=== PATIENT | male | born 1970 | race Caucasian/White ===

== ENCOUNTER 2020-10-21 10:55 | Outpatient (REF) | payer OTHER, SELFPAY ==
[2020-10-21 12:48] LABS: MANUAL DIFF FLAG NO
[2020-10-21 13:16] LABS: Alanine Aminotransferase 34 U/L (0-40); Alkaline Phosphatase 123 U/L (39-117); Anion Gap 14 (12-20); Aspartate Amino Transferase 22 U/L (5-37); Bilirubin Total 0.4 mg/dL (0.0-1.0); Blood Urea Nitrogen 14 mg/dL (9-16); Calcium 10.3 mg/dL (8.4-10.2); Carbon Dioxide 28 mmol/L (22-29); Chloride 103 mmol/L (96-108); Estimated Glomerular Filt Rate > 60; Glucose Random 112 mg/dL (60-115); Potassium 4.4 mmol/L (3.3-5.1); Sodium 141 mmol/L (135-145)
[2020-10-21 13:18] LABS: Basophils Absolute Auto 0.1 X10*3/uL (0.0-0.2); Basophils Percent Auto 0.6 % (0-2); Eosinophils Absolute Auto 0.2 X10*3/uL (0.0-0.4); Eosinophils Percent Auto 1.8 % (0-4); Hematocrit 51.7 % (42-52); Hemoglobin 17.5 g/dl (14.0-18.0); Imm Gran Abs Auto 0.03 X10*3/uL (0.00-0.03); Imm Gran Pct Auto 0.4 % (0.0-0.4); Lymphocytes Absolute Auto 2.3 X10*3/uL (1.2-4.9); Mean Corpuscular HGB Conc 33.8 g/dl (31.0-36.0); Mean Corpuscular Hemoglobin 30.2 pg (27.0-33.0); Mean Corpuscular Volume 89.3 fL (80-98); Mean Platelet Volume 9.8 fL (9.4-12.4); Monocytes Absolute Auto 0.7 X10*3/uL (0.1-1.2); Monocytes Percent Auto 7.9 % (2-11); Neutrophils Absolute Auto 5.2 X10*3/uL (2.0-8.3); Neutrophils Percent Auto 62.3 % (45-73); Platelet Count 289 X10*3/uL (160-400); Red Blood Count 5.79 X10*6/uL (4.60-5.80); White Blood Count 8.3 X10*3/uL (4.8-10.8)
== END 2020-10-21 10:56 | disposition home or self-care (01) ==
LOC: HO.LAB 10:55
PROVIDERS: PCP Internal Medicine; Visit Provider Physician Assistant
DX: R10.32 Left lower quadrant pain (principal); K63.89 Other specified diseases of intestine; I10 Essential (primary) hypertension
CPT/HCPCS: 36415; 80053; 85025

== ENCOUNTER → 2020-11-25 14:24 | Outpatient (BNVA) | payer OTHER, SELFPAY | PROVIDERS: PCP Internal Medicine; Referring Provider Internal Medicine; Visit Provider Surgery ==

== ENCOUNTER 2020-12-01 12:25 | Day surgery (SDC) | payer OTHER, SELFPAY ==
[2020-11-26 10:28] VITALS: BMI 31.1
--- NOTE | 2020-11-27 13:33 | P.CONAN_ITS ---
Documented by User: Carlota Nuñez 11/27/20 13:34 HPI - Anesthesia Eval Consult details Narrative: 50yo M for Colonoscopy [facility] Active Problems Active Problems: All Active Problems (Updated 11/25/20 @ 15:10 by Randal Jane MD) History of inguinal hernia repair (Acute) Abdominal pain (Acute) Past Medical History Medical History (Updated 12/01/20 @ 10:36 by Venessa Vann) Abdominal pain BPH (benign prostatic hyperplasia) Hypertension Increased BMI Family History Family History Mother Breast cancer Father Prostate cancer Surgical History Surgical History H/O colonoscopy History of back surgery History of hernia surgery Social History Social History Household Members: Spouse Alcohol intake: current Alcohol intake frequency: a few times a week Smoking Status: Never smoker Second Hand Smoke Exposure: No Current occupational status: unemployed Current occupation: Due to [employer] Allergies Allergy/AdvReac Type Severity Reaction Status Date / Time No Known Allergies Allergy Verified 11/25/20 14:33 Home Medications Medication Instructions Recorded Confirmed Last Taken Type lisinopril 10 1 tab PO DAILY 11/25/20 11/25/20 Unknown History mg-hydrochlorothiazide 12.5 mg tablet tamsulosin 0.4 mg capsule 0.4 mg PO DAILY 11/25/20 11/25/20 Unknown History Exam Exam Date and Time: November 27, 2020 1333 Height,Weight and Vital Signs: Height 6 ft 2 in Weight 110.223 kg Assessment and Plan Assessment Anesthesia Assessment: Chart Reviewed Documented by User: Venessa Vann 12/01/20 10:37 [facility] Past Medical History Medical History (Updated 12/01/20 @ 10:36 by Venessa Vann) Abdominal pain BPH (benign prostatic hyperplasia) Hypertension Increased BMI Family History Family History Mother Breast cancer Father Prostate cancer Family history of problems with anesthesia: No Surgical History Surgical History H/O colonoscopy History of back surgery History of hernia surgery History of Problems with Anesthesia: Yes (Slow awakening) Social History Social History Household Members: Spouse Alcohol intake: current Alcohol intake frequency: a few times a week Smoking Status: Never smoker Second Hand Smoke Exposure: No Current occupational status: unemployed Current occupation: Due to [employer] Allergies Allergy/AdvReac Type Severity Reaction Status Date / Time No Known Allergies Allergy Verified 11/25/20 14:33 Home Medications Medication Instructions Recorded Confirmed Last Taken Type lisinopril 10 1 tab PO DAILY 11/25/20 11/25/20 Unknown History mg-hydrochlorothiazide 12.5 mg tablet tamsulosin 0.4 mg capsule 0.4 mg PO DAILY 11/25/20 11/25/20 Unknown History Exam Airway Mallampati Class: II TM Dist: >3cm Neck ROM: Full Loose/Missing/Broken Teeth: No Heart: RRR Lungs: CTAB Assessment and Plan Assessment Anesthesia Assessment: Anesthesia Plan Discussed and Chart Reviewed Final Anesthetic Review NPO: Yes ASA Class: II Final Preanesthetic Review: No Changes in Pt Med Stat, Meds/Allgs Chart Reviewed, Consent Obtained/Reviewed and Anes Risks/Benef Reviewed Patient Risk: Low Procedure Risk: Low Assessment/Block/Sedation in SS: Assess/Block/Sedation-SS Anesthetic Plan Anesthetic Plan: MAC: Disposition: Standard PACU
[2020-12-01 10:13] VITALS: BP 136/77; PULSE 64; RESP 17; TEMP 36.1; O2SAT 98; BMI 31.0
[2020-12-01] MEDS: Lactated Ringers 1,000 ML 100 ML IVCONT (10:35)
--- NOTE | 2020-12-01 10:45 | MHC.SHP ---
Pre-Procedural Eval Section B Chief Complaint: Abdominal Pain Relevant Family History (Specify if Yes): No Relevant Social History: None Present Medications: see Short Stay Collaborative assessment Medical History: Significant History (Abdominal pain BPH (benign prostatic hyperplasia) Hypertension Increased BMI) History of Previous Operations: Relevant previous surgery/procedure and date(s) (hernia, surgery, back surgery) Allergies: Allergies Allergy/AdvReac Type Severity Reaction Status Date / Time No Known Allergies Allergy Verified 11/25/20 14:33 Review of Systems Sugical H&P ROS: Negative: Constitution, Cardiovascular, Respiratory, Neurological, Psychiatric, Hem-Onc, Allergic/Immunologic, Gastrointestinal, Genitourinary, Musculoskeletal, Integumentary, Endocrine and Eyes/Ears/Nose/Throat Exam Surgical H&P Exam: Normal: HEENT, Normal: Heart, Normal: Lungs, Normal: Extremities, Normal: Abdomen, Normal: Skin and Normal: Neurological Plan Diagnosis/Plan: Unchanged I have reviewed the history and physical and performed a pertinent physical examination on my patient. No changes have occurred unless specified.
--- NOTE | 2020-12-01 10:46 | P.BOP_ITS ---
Brief Operative Note Date of Service: 12/01/20 Pre-op diagnosis: LLQ abdominal pain Post-op diagnosis: same Procedure: see op note Surgeon: Finesse Terry MD Anesthesia: MAC Was an Forester Silviculture used for this Procedure?: No Estimated blood loss (mL): 0 Condition: stable Disposition: PACU
--- NOTE | 2020-12-01 10:47 | P.OP_ITS ---
Operative Note Operative Note Date of Service: 12/01/20 Narrative: Operative Information Procedure Description: Colonoscopy COLONOSCOPY Instrument: Olympus variable stiffness adult scope 190L Colonoscopy Monitoring: Vital signs and clinical assessment, continuous EKG monitoring, Pulse oximetry, Carbon Dioxide monitoring and blood pressure monitoring were done throughout the procedure. Colon withdrawal time was 8 minutes. Procedure: The patient was placed in the left lateral decubitis position and pre-procedure medications were administered. After a digital rectal examination of the ano-rectum, the video colonoscope was inserted into the rectum and advanced through the colon to the cecum/TI. The colonoscope was slowly withdrawn in a retrograde panoramic fashion and the colon mucosa was carefully examined including a retroflexed view of the rectum. Findings and interventions are described below. Procedure Difficulty: easy Findings: Terminal Ileum-nodular lymphoid hyperplasia Cecum:normal Ascending Colon: normal Transverse Colon -normal Descending Colon:normal Sigmoid Colon: normal Rectum: Retroflexion with small internal hemorrhoids, grade I, 8-9 mm sessile polyp removed with forceps Anorectum - normal Colon preparation: Beeler Bowel Preparation Scale Right colon; 2 Transverse colon: 2 Left colon; 2 (0 = Unprepared colon segment with mucosa not seen due to solid stool that cannot be cleared. 1 = Portion of mucosa of the colon segment seen, but other areas of the colon segment not well seen due to staining, residual stool and/or opaque liquid. 2 = Minor amount of residual staining, small fragments of stool and/or opaque liquid, but mucosa of colon segment seen well. 3 = Entire mucosa of colon segment seen well with no residual staining, small fragments of stool or opaque liquid) Impression and Post Procedure Diagnosis: polyp internal hemorrhoids Plan: High fiber diet leaflet Avoid straining at stool, epsom salts and sitz bath, anusol supps or cream prn Repeat Colonoscopy in 5-7 years if adenoma, 10 yrs if hyperplastic or earlier if clinically indicated F/u with Dr Moore re: pain in hernia area if sx persist with neg surgical w/u then consider IBS, and check IgM, IgG, IgA levesl to r/o CVID Above findings were reviewed with the patient and relevant handouts were provided if indicated.
[2020-12-01 11:10] VITALS: BP 130/87; PULSE 101; RESP 14; TEMP 36.7; O2SAT 99
[2020-12-01 11:25] VITALS: BP 137/86; PULSE 63; RESP 18; TEMP 36.7; O2SAT 99
== END 2020-12-01 12:26 | disposition home or self-care (01) ==
LOC: HO.SSS 12:25
PROVIDERS: PCP Internal Medicine; Visit Provider Internal Medicine Gastroenterology
PROC: 0DJD8ZZ Inspection of Lower Intestinal Tract, Via Natural or Artificial Opening Endoscopic (ICD-10-PCS; CPT 45378; principal; 2020-12-01 10:50)
DX: R10.32 Left lower quadrant pain (principal); K62.1 Rectal polyp; K64.0 First degree hemorrhoids; K63.89 Other specified diseases of intestine; I10 Essential (primary) hypertension; N40.0 Benign prostatic hyperplasia without lower urinary tract symptoms
CPT/HCPCS: 45380; 88305

== ENCOUNTER → 2020-12-19 08:38 | Outpatient (BNVA) | payer OTHER, SELFPAY | PROVIDERS: PCP Internal Medicine; Referring Provider Internal Medicine; Visit Provider Surgery ==

== ENCOUNTER 2020-12-31 08:45 | Day surgery (SDC) | payer OTHER, SELFPAY ==
[2020-12-25 13:48] VITALS: BMI 31.0
--- NOTE | 2020-12-30 09:36 | HO.ANESPROP2 ---
Documented by User: Carlota Nuñez 12/30/20 09:38 HPI - Anesthesia Eval Consult details Narrative: 50yo M for Left Recurrent Inguinal Hernia Repair with Mesh s/p colonoscopy with MAC 11/2020 [facility] Active Problems Active Problems: All Active Problems (Updated 12/25/20 @ 13:40 by Eboni Hwang) History of inguinal hernia repair (Acute) Recurrent left inguinal hernia (Acute) Increased BMI (Acute) H/O colonoscopy (Acute) BPH (benign prostatic hyperplasia) (Acute) Hypertension (Acute) Abdominal pain (Acute) Past Medical History Medical History Abdominal pain BPH (benign prostatic hyperplasia) Hypertension Increased BMI On beta merary at home Family History Family History Mother Breast cancer Father Prostate cancer Family history of problems with anesthesia: No Surgical History Surgical History H/O colonoscopy History of back surgery History of hernia surgery History of Problems with Anesthesia: Yes Social History Social History Household Members: Spouse Are you a primary hospice care sales consultant to a significant other at home: No Do you presently have visiting nurse or other home services: No Alcohol intake: current Alcohol intake frequency: a few times a week Second Hand Smoke Exposure: No Are you DNR?: No Advance Directives: No Advance Directives Information Provided: No Advance Directives on File: No Recently lost weight without trying: No Eating poorly because of decreased appetite: No Nutrition Risks: No Nutritional Risk Current occupational status: unemployed Current occupation: Due to [email or web address] Allergies Allergy/AdvReac Type Severity Reaction Status Date / Time No Known Allergies Allergy Verified 12/31/20 09:05 Home Medications Medication Instructions Recorded Confirmed Last Taken Type lisinopril 10 1 tab PO DAILY 11/25/20 12/25/20 Unknown History mg-hydrochlorothiazide 12.5 mg tablet tamsulosin 0.4 mg capsule 0.4 mg PO DAILY 11/25/20 12/25/20 Unknown History metoprolol succinate 1 tab PO DAILY 12/25/20 12/25/20 12/31/20 05:00 History Exam Exam Date and Time: December 30, 2020 0937 Height,Weight and Vital Signs: Height 6 ft 2 in Weight 109.769 kg Assessment and Plan Assessment Anesthesia Assessment: Chart Reviewed Documented by User: Linette Kulkarni 12/31/20 10:40 [facility] Past Medical History Medical History Abdominal pain BPH (benign prostatic hyperplasia) Hypertension Increased BMI On beta merary at home Family History Family History Mother Breast cancer Father Prostate cancer Surgical History Surgical History H/O colonoscopy History of back surgery History of hernia surgery Social History Social History Household Members: Spouse Are you a primary hospice care sales consultant to a significant other at home: No Do you presently have visiting nurse or other home services: No Alcohol intake: current Alcohol intake frequency: a few times a week Second Hand Smoke Exposure: No Are you DNR?: No Advance Directives: No Advance Directives Information Provided: No Advance Directives on File: No Recently lost weight without trying: No Eating poorly because of decreased appetite: No Nutrition Risks: No Nutritional Risk Current occupational status: unemployed Current occupation: Due to [email or web address] Allergies Allergy/AdvReac Type Severity Reaction Status Date / Time No Known Allergies Allergy Verified 12/31/20 09:05 Home Medications Medication Instructions Recorded Confirmed Last Taken Type lisinopril 10 1 tab PO DAILY 11/25/20 12/25/20 Unknown History mg-hydrochlorothiazide 12.5 mg tablet tamsulosin 0.4 mg capsule 0.4 mg PO DAILY 11/25/20 12/25/20 Unknown History metoprolol succinate 1 tab PO DAILY 12/25/20 12/25/20 12/31/20 05:00 History Exam Airway Mallampati Class: II TM Dist: >3cm Neck ROM: Full Assessment and Plan Assessment Anesthesia Assessment: Anesthesia Plan Discussed and Chart Reviewed Final Anesthetic Review NPO: Yes ASA Class: II Final Preanesthetic Review: No Changes in Pt Med Stat, Meds/Allgs Chart Reviewed, Consent Obtained/Reviewed and Anes Risks/Benef Reviewed Patient Risk: Low Procedure Risk: Low Assessment/Block/Sedation in SS: Assess/Block/Sedation-SS Anesthetic Plan Anesthetic Plan: GA Disposition: Standard PACU
[2020-12-31] VITALS (7 sets, daily range): BP systolic 132–163; BP diastolic 73–98; PULSE 68–96; RESP 16–18; TEMP 36.1–37.2; O2SAT 92–97
[2020-12-31] MEDS: Lactated Ringers 1,000 ML 100 ML IVCONT (09:29)
--- NOTE | 2020-12-31 11:01 | MHC.SHP ---
Pre-Procedural Eval Section A The patient is an INPATIENT: No Changes since office visit: Yes Patient answered all questions; No Cold of Flu in the past 2 weeks, No New Medical Problems and No Changes in Medication The History & Physical has been completed within 30 days and I have reviewed it.: Yes Section B Chief Complaint: Recurrent left inguinal hernia Allergies: Allergies Allergy/AdvReac Type Severity Reaction Status Date / Time No Known Allergies Allergy Verified 12/31/20 09:05 Plan Diagnosis/Plan: Unchanged I have reviewed the history and physical and performed a pertinent physical examination on my patient. No changes have occurred unless specified.
--- NOTE | 2020-12-31 12:25 | P.OP_ITS ---
Operative Note Operative Note Date of Service: 12/31/20 Narrative: Preoperative diagnosis: Recurrent left inguinal hernia Postoperative diagnosis: Same Procedure: Repair of recurrent left inguinal hernia with mesh Surgeon: Randal Jane MD Air Carrier Inspector: No physician Anesthesia: General LMA Indications for procedure: 50-year-old male patient with a previous history of a left inguinal hernia with mesh possibly with a plug and patch type repair now presenting with a recurrence left inguinal hernia noted on recent CT. He presents for repair of this hernia with mesh. Operative findings: Patient was found to have a recurrent hernia located at the internal ring with a lipoma passing through the internal ring. This was repaired using an onlay mesh attached to the previous mesh repair. Specimen: Lipoma of the cord Estimated blood loss: 5 mL Complications: None Procedure details: Patient was brought to the OR placed in a supine position. After administering general anesthesia the patient's abdomen was prepped with ChloraPrep and draped in a sterile fashion. A surgical time-out was called the consent confirmed. Patient received preoperative antibiotics and Venodyne boots were in place. Local anesthesia consisting of 0.25% Sensorcaine with epinephrine was then infiltrated over the left inguinal ligament. Incision was then made over the left inguinal ligament with a scalpel carried out through subcutaneous tissue, past Jennifer's fascia, and up to the external oblique aponeurosis. Additional local was then infiltrated below the external oblique aponeurosis. Incision was then made with a scalpel in the fascia in wide with the Metzenbaum scissors. The previous mesh was encountered and needed to be dissected away from the external oblique aponeurosis using the Metzenbaum scissors. Spermatic cord was then identified and dissected free from the surrounding scar tissue and inguinal canal using a blunt dissection. This was then retracted using a Christine drain. The area of herniation was identified immediately with a of large lipoma passing through the internal ring. This was dissected down to the internal ring and then resected. An onlay mesh was then obtained using a flat 3 x 6 in polypropylene mesh. This was cut to size with a slit placed to wrap around the spermatic cord at the internal ring. This was then secured to the pubic tubercle, conjoined tendon, and shelving edge of the inguinal ligament using 0 Polysorb sutures. The mesh was also secured to the previous mesh laterally using the 0 Polysorb suture. The internal ring was tight enough to allow the tip of the index finger to pass easily no direct hernia could be identified. Wounds were then irrigated and suctioned dry. External oblique aponeurosis was reapproximated using a running 2 0 Polysorb suture. Jennifer's fascia and dermis reapproximated using interrupted 3-0 Polysorb sutures. Skin was then closed using a running subcuticular 4-0 Polysorb suture. Steri-Strips 2 x 2 gauze and Tegaderm were then applied patient tolerated procedure well. Sponge, instrument, and needle counts reported as correct. Patient was transferred to PACU in stable condition.
[2020-12-31] MEDS: Acetaminophen 325 MG TABLET 650 MG PO (13:01)
[2020-12-31] MEDS: oxyCODONE HCl Immed Release 5 MG TABLET PO (13:02)
== END 2020-12-31 13:50 | disposition home or self-care (01) ==
PROVIDERS: PCP Internal Medicine; Visit Provider Surgery
PROC: (CPT 49520; principal; 2020-12-31 10:40)
DX: K40.91 Unilateral inguinal hernia, without obstruction or gangrene, recurrent (principal); D17.5 Benign lipomatous neoplasm of intra-abdominal organs; I10 Essential (primary) hypertension
CPT/HCPCS: 49520; 88304; C1781; J0690; J1100; J1170; J1885; J2250; J2405; J3010

== ENCOUNTER → 2021-01-08 09:51 | Outpatient (BNVA) | payer OTHER, SELFPAY | PROVIDERS: PCP Internal Medicine; Referring Provider Internal Medicine; Visit Provider Surgery ==

== ENCOUNTER → 2021-02-05 08:48 | Outpatient (BNVA) | payer OTHER, SELFPAY | PROVIDERS: PCP Internal Medicine; Referring Provider Internal Medicine; Visit Provider Surgery ==

== ENCOUNTER 2023-04-01 15:51 | Outpatient (REF) | payer OTHER, SELFPAY ==
[2023-04-01 18:10] LABS: Anion Gap 13 (12-20); Blood Urea Nitrogen 12 mg/dL (9-16); Calcium 10.5 mg/dL (8.4-10.2); Carbon Dioxide 26 mmol/L (22-29); Chloride 106 mmol/L (96-108); Estimated Glomerular Filt Rate > 60; Glucose Random 85 mg/dL (60-115); Potassium 3.6 mmol/L (3.3-5.1); Sodium 141 mmol/L (135-145)
== END 2023-04-01 15:52 | disposition home or self-care (01) ==
LOC: HO.CHCLDS 15:51
PROVIDERS: Internal Medicine; Visit Provider Internal Medicine
DX: N52.8 Other male erectile dysfunction (principal)
CPT/HCPCS: 36415; 80048

== ENCOUNTER 2023-05-13 15:10 | Outpatient (REF) | payer OTHER, SELFPAY ==
[2023-05-13 17:58] LABS: TSH reflex Free T4 0.53 uIU/mL (0.32-4.0)
[2023-05-14 10:23] LABS: Lutenizing Hormone 6.6 mIU/mL (1.5-9.3)
[2023-05-18 21:48] LABS: Testosterone, Free 53.3 pg/mL (35.0-155.0); Testosterone, Total 452 ng/dL (250-1100)
== END 2023-05-13 15:11 | disposition home or self-care (01) ==
LOC: HO.CHCLDS 15:10
PROVIDERS: Visit Provider Internal Medicine
DX: N52.8 Other male erectile dysfunction (principal); I10 Essential (primary) hypertension
CPT/HCPCS: 36415; 83001; 83002; 84402; 84403; 84443

== ENCOUNTER 2023-07-21 16:03 | Outpatient (REF) | payer OTHER, SELFPAY ==
[2023-07-21 18:03] LABS: Appearance Urine Clear; Color Urine Yellow; Glucose Urine UA Negative (Negative); Leukocyte Esterase Urine Negative (Negative); Nitrite Urine Negative (Negative); PH 6.5 (5.0-9.0); UMIC TRIGGER UACC YES; Urine Blood Negative (Negative); Urine Ketones Trace mg/dL (Negative); Urine Protein 100 (2+) mg/dL (Neg-Trace)
[2023-07-21 18:07] LABS: Bacteria Urine None Seen (None Seen); Hyaline Casts Urine 0-2 /LPF (0-2); RBC Urine 0-2 /HPF (0-2); Squamous Epithelial Cell Urine 0-2 /HPF (0-2); WBC Urine 0-5 /HPF (0-5)
== END 2023-07-21 16:04 | disposition home or self-care (01) ==
LOC: HO.CHCLNP 16:03
PROVIDERS: Visit Provider Internal Medicine
DX: R30.0 Dysuria (principal)
CPT/HCPCS: 81001; 87086

== ENCOUNTER 2023-09-09 14:38 | Outpatient (REF) | payer OTHER, SELFPAY ==
[2023-09-12 10:53] LABS: Free Prostate Spec Ag 0.1 ng/mL; Percent Free Prostate Spec Ag 25 % (calc) (>25); Prostate Specific Ag Total 0.4 ng/mL (< OR = 4.0)
== END 2023-09-09 14:39 | disposition home or self-care (01) ==
LOC: HO.CHCLDS 14:38
PROVIDERS: Visit Provider Internal Medicine
DX: Z12.5 Encounter for screening for malignant neoplasm of prostate (principal); R30.0 Dysuria
CPT/HCPCS: 36415; 84154

== ENCOUNTER 2025-02-08 07:19 | Outpatient (AMB) | payer OTHER, SELFPAY ==
--- OUTSIDE RECORDS SUMMARY | 2025-02-08 07:21 | XMS_ITS | Clinical Summary ---
Author Organization [facility] Address [address] [place] [address] Care Team Providers Care Cell Lead Name Role Phone Unavailable Primary Care Provider Unavailabl e Allergies No known active allergies Medications No known medications Active Problems No known active problems Social History Tobacco Use Types Packs/Day Years Used Date Smoking Tobacco: Never Assessed Sex and Gender Information Value Date Recorded Sex Assigned at Male 04/10/2022 11:08 PM EDT Gender Identity Male 04/10/2022 11:08 PM EDT Sexual Orientation Not on file Job Start Date Occupation Industry Not on file Not on file Not on file Last Filed Vital Signs Vital Sign Reading Time Taken Comments Blood Pressure 173/128 04/11/2022 12:30 PM EDT Pulse 111 04/11/2022 12:30 PM EDT Temperature 36.1 C (97 F) 04/11/2022 12:30 PM EDT Respiratory Rate 16 04/11/2022 12:30 PM EDT Oxygen Saturation 95% 04/11/2022 12:30 PM EDT Inhaled Oxygen Concentration - - Weight 106.6 kg (235 lb) 04/10/2022 11:26 PM EDT Height 188 cm (6' 2 ) 04/10/2022 11:26 PM EDT Body Mass Index 30.17 04/10/2022 11:26 PM EDT Plan of Treatment Not on file
--- OUTSIDE RECORDS SUMMARY | 2025-02-08 07:21 | XMS_ITS | Encounter Summary ---
Author Organization [employer] Address [address] [place] [id number] Care Team Providers Care Band Bias Machine Operator Name Role Phone Hari Mitchell MD Primary Care Provider [phone] Reason for Visit * Reason Onset Date Comments Referral 09/01/2023 Encounter Details Date Type Department Care Team ([facility] st Contact Info) Description 09/01/2023 Telephone [facility] [address], [place] [phone] Hari Mitchell MD [address] [place] [address] Referral Social History Tobacco Use Types Packs/Day Years Used Date Smoking Tobacco: Never Smokeless Tobacco: Never Alcohol Use Standard Drinks/Week Comments Defer 0 (1 standard drink = 0.6 oz pur e alcohol) Depression Answer Date Recorded Patient Health Questionnaire-9 Score 0 07/08/2022 Depression Answer Date Recorded Patient Health Questionnaire-2 Score 0 07/08/2022 Sex and Gender Information Value Date Recorded Sex Assigned at Male 05/24/2022 10:37 AM EDT Legal Sex Male 10:37 AM EDT Gender Identity Male 05/24/2022 10:37 AM EDT Sexual Orientation Straight 05/24/2022 10 :37 AM EDT documented as of this encounter Miscellaneous Notes * Telephone Encounter - Elidia Licea RN - 09/01/2023 2:45 PM EST Referral just placed this week. Pt will be informed of appt information once referral is processed. * Telephone Encounter - Avtar Fairchild - 09/01/2023 1:31 PM EST Tc from pt requesting status on Urology referral provider advice on last visit. Please contact pt @ [phone] documented in this encounter Plan of Treatment Not on file documented as of this encounter Visit Diagnoses Not on filedocumented in this encounter Additional Health Concerns Assessment Noted Time PHQ-9 Depression Total Score: 0 07/08/20 22 4:17 PM EST documented as of this encounter Care Teams Band Bias Machine Operator Relationship Specialty Start Date End Date Hari Mitchell MD [address] [place] [id number] PCP - General Internal Medicine 08/27/20 documented as of this encounter
--- OUTSIDE RECORDS SUMMARY | 2025-02-08 07:21 | XMS_ITS | Clinical Summary ---
Author Organization [facility] Address [address] [place] [address] Care Team Providers Care Claims Representative Name Role Phone Unavailable Primary Care Provider Unavailabl e Social History Tobacco Use Types Packs/Day Years Used Date Smoking Tobacco: Never Assessed Sex and Gender Information Value Date Recorded Sex Assigned at Not on file Legal Sex Male 6:29 PM EST Gender Identity Not on file Sexual Orientation Not on file Obstetrics History Plan of Treatment Health Maintenance Due Date Last Done Comments DTaP,Tdap,and Td Vaccines (1 - Tdap) 1990 Hepatitis B Vaccines (1 of 3 - 19+ 3-dose series) 1990 Pneumococcal Vaccine: 50+ Ye ars (1 of 1 - PCV) 2021 Zoster Vaccines (1 of 2) 2021 Cholesterol Screening (Lipid Panel) 06/26/2022 Colorectal Cancer Screening: Colonoscopy 06/26/2022 Depression Screening 06/26/2022 HIV Screening 06/26/2022 Hepatitis C Screening 06/26/2022 Social Influencers of Health Screening 06/26/2022 COVID-19 Vaccine ( - 2023-2 5 season) 2024 Influenza Vaccine (#1) 2025 HIB Vaccines Aged Out No longer eligi ble based on patient's age to complete this topic HPV Vaccines Aged Out No longer eligi ble based on patient's age to complete this topic Hepatitis A Vaccines Aged Out No long er eligible based on patient's age to complete this topic IPV Vaccines Aged Out No longer eligi ble based on patient's age to complete this topic MMR Vaccines Aged Out No longer eligi ble based on patient's age to complete this topic Meningococcal ACWY Vaccine Aged Out N o longer eligible based on patient's age to complete this topic Meningococcal B Vaccine Aged Out No l onger eligible based on patient's age to complete this topic RSV Immunization Patients Un nanci 20 months Aged Out No longer eligible b ased on patient's age to complete this topic Varicella Vaccines Aged Out No longer eligible based on patient's age to complete this topic
[2025-02-08 07:22] VITALS: BP 172/106; PULSE 85; TEMP 37.2; O2SAT 96; BMI 29.8
--- NOTE | 2025-02-08 07:22 | MHC.OFFWIV ---
Intake Vital Signs 02/08/25 07:22 Height 6 ft 1 in Weight 226 lb BMI 29.8 BP 172/106 H Blood Pressure Location Rt brachial Position Sitting Pulse 85 Pulse Source Pulse Oximeter Temp 98.9 F Temp Source Oral Pulse Oximetry (%) 96 Oxygen Delivery Method Room Air Intake Visit Reasons: RESEARCH PHYSICIAN-chest congestion, coughing Intake Note: presents with chest congestion and productive coughing for about 10 days Allergies No Known Allergies Allergy (Verified 02/08/25 07:24) HPI HPI Comments History of Present Illness Details This is a 54-year-old male with a past medical history of hypertension presenting for evaluation of a dry cough that he has had for the past 10 days. Patient denies having any fevers, chills, ear pain or sore throat however states that when he coughs he feels pressure in his chest. Patient has been taking NyQuil only without relief of his symptoms. ON LICENSE OF [facility] Medical History Abdominal pain BPH (benign prostatic hyperplasia) Hypertension Increased BMI On beta merary at home Surgical History H/O colonoscopy History of back surgery History of hernia surgery Family History Mother Breast cancer Father Prostate cancer Social History Household Members: Spouse Are you a primary acute care occupational therapist to a significant other at home: No Do you presently have visiting nurse or other home services: No Alcohol intake: current Alcohol intake frequency: a few times a week Second Hand Smoke Exposure: No Current occupational status: unemployed Current occupation: Due to covid Review of Systems Const All systems reviewed & are unremarkable except as noted in HPI and below Reports no additional complaints, Denies body aches, Denies chills, Reports fatigue, Denies fever(s) and Denies headache(s) Eyes Reports no additional complaints ENT Reports no additional complaints, Denies otalgia, Denies headache(s) and Denies sore throat Card Reports chest pain ( chest pressure with cough), Denies palpitations, Denies dyspnea and Denies dyspnea on exertion Resp Reports chest congestion, Reports cough, Denies hemoptysis, Denies dyspnea and Denies dyspnea on exertion GI Denies abdominal pain, Denies belching, Denies coffee ground emesis, Denies nausea and Denies vomiting Reports no additional complaints Musc Reports no additional complaints Skin/Breast Reports system reviewed and no additional complaints, except as documented Neuro Denies headache(s) Psych Reports no additional complaints Endo Reports no additional complaints, Reports fatigue and Denies palpitations Curtis/Lymph Reports no additional complaints Aller/Immun Reports no additional complaints Physical Exam Vital Signs: Last Vital Signs Temp 98.9 F 02/08/25 07:22 Pulse 85 02/08/25 07:22 BP 172/106 H 02/08/25 07:22 Pulse Ox 96 02/08/25 07:22 Oxygen Delivery Method Room Air 02/08/25 07:22 BMI result Body Mass Index 29.8 Patient is afebrile and hypertensive. Const General: cooperative, comfortable, no acute distress, well developed, alert, awake and Physically active Nutritional Appearance: overweight Orientation/consciousness: patient oriented x3 Limitations: no limitations HEENT Head: Yes normal to inspection Ears: hearing grossly normal bilaterally, external ears normal, TM's normal bilaterally and EAC's normal General nose exam: Normal external nose present Face and sinus: Yes normal facial exam Mouth: Normal oral and palatal mucosa present and moist mucous membranes Throat: Yes posterior oropharynx normal and No postnasal drainage Eyes General: appearance normal, both eyes and all related structures Resp Auscultation: wheezes (right base) right lower Cardio Rhythm: regular rhythm Heart sounds: S1 normal heart sound present Skin General skin exam: no rashes or lesions noted Neuro General: patient oriented x3 Psych Appearance: grossly normal Mental Status: mental status grossly normal Insight: Good insight present (Psych) Judgement: Good judgement present (Psych) Results Reviewed Results Reviewed: EKG NSR 71bpm, RBBB Assessment & Plan Assessment & Plan (1) Acute upper respiratory infection: Comment: Order for chest x-ray has been placed and the patient is invited to return once radiology arrives at 8:30 a.m.. Code(s): J06.9 - Acute upper respiratory infection, unspecified Plan: Prednisone 40 mg x 5 days, Mucinex OTC daily times 7-10 days and increase clear fluids daily. (2) Chest pressure: Comment: EKG reveals normal sinus rhythm with a rate of 71 beats per minute and a right bundle-branch block. It is not known the chronicity of his right bundle branch block. Conversation including shared decision-making is pursued and patient is encouraged to go to the emergency department given his hypertension and intermittent chest pressure. Patient declines at this time. Code(s): R07.89 - Other chest pain Plan: Recommend going to the ED for further evaluation and care. (3) Hypertension: Comment: Patient states he has not taken his blood pressure medicine yesterday or today and does not routinely see his primary care provider I do not really see him much?. Code(s): I10 - Essential (primary) hypertension Qualifiers: Hypertension type: primary hypertension Qualified Code(s): I10 - Essential (primary) hypertension Plan: Patient is encouraged to call his primary care provider today and schedule outpatient follow up. Orders: Orders AMB EKG-In Office Today R07.89 - Other chest pain XR chest 2V Today R05.9 - Cough, unspecified Medications: New prednisone 40 mg (2 x 20 mg) PO DAILY 10 tabs 0RF Coding Level of Care Code New Pt Level 5 (65574) Diagnoses Acute upper respiratory infection J06.9 Chest pressure R07.89 Primary hypertension I10 Hypertension type: primary hypertension Time Spent (min) 30
== END 2025-02-08 08:42 | disposition home or self-care (01) ==
PROVIDERS: PCP Internal Medicine; Visit Provider Physician Assistant
DX: J06.9 Acute upper respiratory infection, unspecified (principal); R07.89 Other chest pain; I10 Essential (primary) hypertension

== ENCOUNTER → 2025-02-08 07:19 | Outpatient (BNVA) | payer OTHER, SELFPAY | PROVIDERS: PCP Internal Medicine; Visit Provider Physician Assistant | DX: J06.9 Acute upper respiratory infection, unspecified (principal); R07.89 Other chest pain; I10 Essential (primary) hypertension | CPT/HCPCS: 93005 ==

== ENCOUNTER 2025-05-06 09:16 | Outpatient (REF) | payer OTHER, SELFPAY ==
--- OUTSIDE RECORDS SUMMARY | 2025-05-02 16:00 | XMS_ITS | Encounter Summary ---
Author Organization [employer] Address [address] [place] [id number] Care Team Providers Care Car Washer Name Role Phone Hari Mitchell MD Primary Care Provider [phone] Reason for Referral * Consultation (Routine) - Pending Review Specialty Diagnoses / Procedures Referred By Enrique bueno Referred To Contact Urology Diagnoses Nocturia Hari Mitchell MD [address] [place] [address] Phone: tel: fax: Referral ID Status Reason Start Date Expiration Date Visits Requested Visits Authorized [id number] Pending Review Specialty Services Required 05/02/2025 05/02/2026 1 1 Reason for Visit * Reason Comments Hypertension Nocturia Encounter Details Date Type Department Care Team ([facility] Contact Info) Description 05/02/2025 4:00 PM EDT Office Visit [facility] [address] [place] [address] Hari Mitchell MD [address] [place] [address] Essential hypertension (Primary Dx); Dysuria; Nocturia; Moderate major depression, single episode (CMS/HCC) (HCC); Dietary counseling; Exercise counseling; Class 1 obesity due to excess calories with serious comorbidity and body mass index (BMI) of 34.0 to 34.9 in adult; Encounter for immunization Social History Tobacco Use Types Packs/Day Years [...] AM EDT documented as of this encounter Last Filed Vital Signs Vital Sign Reading Time Taken Comments Blood Pressure 159/95 05/02/2025 4:06 PM EDT Pulse 81 05/02/2025 4:06 PM EDT Temperature - - Respiratory Rate 20 05/02/2025 4:06 PM EDT Oxygen Saturation 94% 05/02/2025 4:06 PM EDT Inhaled Oxygen Concentration - - Weight 107 kg (236 lb) 05/02/2025 4:06 PM EDT Height 182 cm (5' 11.65 ) 05/02/2025 4:06 PM EDT Body Mass Index 32.32 05/02/2025 4:06 PM EDT documented in this encounter Progress Notes * Hari Mitchell MD - 05/02/2025 4:00 PM EDT SUBJECTIVE Niels Mary is a 55 y.o. male who presents for Hypertension and Nocturia. Hypertension This is a recurrent problem. The problem is uncontrolled. Pertinent negatives include no anxiety, blurred vision, chest pain, headaches, malaise/fatigue, neck pain, orthopnea, palpitations, peripheral edema, PND, shortness of breath or sweats. There are no associated agents to hypertension. There is no history of chronic renal disease, coarctation of the aorta, hyperaldosteronism, hypercortisolism, hyperparathyroidism, a hypertension causing med, pheochromocytoma, renovascular disease, sleep apnea or a thyroid problem. Mr. Niels Mary claims compliance to his current medication. No reported side effect. He was taking his verapamil only 2 times a day instead of 3 times a day as prescribed. History of nocturia. Wakes up 1-2 times at night to urinate on 0.4 mg tamsulosin. Patient has increased the dose himself to 0.8 and even 0.12 mg with improvement. He does not wake up at night on thatdose. He states he has completely stopped drinking alcohol 1 week ago. Problem List[1] Allergies[2] Medications Ordered Prior to Encounter[3] Review of Systems Constitutional: Negative for activity change, appetite change, chills, diaphoresis and malaise/fatigue. HENT: Negative for dental problem, drooling and ear discharge. Eyes: Negative for blurred vision, pain and itching. Respiratory: Negative for cough, choking, chest tightness and shortness of breath. Cardiovascular: Negative for chest pain, palpitations, orthopnea, leg swelling and PND. Gastrointestinal: Negative for abdominal pain, anal bleeding and blood in stool. Endocrine: Negative for cold intolerance and heat intolerance. Genitourinary: Negative for flank pain, frequency and genital sores. Musculoskeletal: Negative for back pain and neck pain. Neurological: Negative for light-headedness, numbness and headaches. Psychiatric/Behavioral: Negative for agitation, confusion and decreased concentration. OBJECTIVE Vitals: 05/02/25 1606 BP: (!) 159/95 BP Location: Left arm Patient Position: Sitting BP Cuff Size: Adult long Pulse: 81 Resp: 20 SpO2: 94% Weight: 236 lb (107 kg) Height: 5' 11.65 (1.82 m) Physical Exam Constitutional: General: He is not in acute distress. Appearance: Normal appearance. He is not ill-appearing, toxic-appearing or diaphoretic. Cardiovascular: Rate and Rhythm: Normal rate. Heart sounds: No murmur heard. Pulmonary: Effort: Pulmonary effort is normal. No respiratory distress. Breath sounds: No stridor. No wheezing or rhonchi. Neurological: General: No focal deficit present. Mental Status: He is alert. Assessment/Plan Assessment/Plan Diagnoses and all orders for this visit: Essential hypertension Comments: Uncontrolled Verapamil increased to 240 mg once a day Continue with rest of medication DASH diet. Orders: - verapamil SR (Calan SR) 240 MG ER tablet; Take 1 tablet (240 mg) by mouth at bedtime. Do not crush or chew. - CBC auto differential; Future - Comprehensive Metabolic Panel; Future - Lipid Panel, Standard; Future - TSH with Reflex to Free T4; Future - Hepatitis C Antibody with Reflex to HCV, RNA, Quantitative, Real-Time PCR; Future - HIV-1/2 Antigen and Antibodies, Fourth Generation, with Reflexes; Future Dysuria Comments: Tamsulosin 0.8 mg at bedtime Urology evaluation recommended. Orders: - CBC auto differential; Future - Comprehensive Metabolic Panel; Future - Lipid Panel, Standard; Future - TSH with Reflex to Free T4; Future - Hepatitis C Antibody with Reflex to HCV, RNA, Quantitative, Real-Time PCR; Future - HIV-1/2 Antigen and Antibodies, Fourth Generation, with Reflexes; Future Nocturia Comments: As noted above. Orders: - tamsulosin (Flomax) 0.4 MG 24 hr capsule; Take 2 capsules (0.8 mg) by mouth Once per day. - Referral to Urology; Future Moderate major depression, single episode (CMS/HCC) (HCC) Comments: Stable. Continue with the same dose of sertraline Orders: - sertraline (Zoloft) 50 MG tablet; Take 1 tablet (50 mg) by mouth in the morning. Dietary counseling Exercise counseling Class 1 obesity due to excess calories with serious comorbidity and body mass index (BMI) of 34.0 to 34.9 in adult Dietary Recommendations: Fruits, vegetables, whole grains, protein foods, and fat-free or low-fat dairy products are healthychoices. Eat different types of protein foods in your diet. This can include seafood, lean meats, poultry, beans, peas, lentils, nuts, seeds, soy products, and eggs. Limit foods and beverages higher in added sugars, saturated fat, and sodium. Exercise Recommendations: At least 150 minutes of moderate-intensity physical activity per week, or an equivalent combinationof moderate- and vigorous-intensity activity Encounter for immunization - TDAP VACCINE 7 yrs + [1] Patient Active Problem List Diagnosis Essential hypertension Hypercholesterolemia Moderate major depression, single episode (CMS/HCC) (HCC) Polyp of colon [2] Allergies Allergen Reactions Lisinopril [3] Current Outpatient Medications on File Prior to Visit Medication Sig Dispense Refill amLODIPine (Norvasc) 10 MG tablet TAKE ONE TABLET EVERY MORNING 90 tablet 3 carvedilol (Coreg) 3.125 MG tablet TAKE ONE TABLET IN THE MORNING AND EVENING WITH MEALS 90 tablet 3 LORazepam (Ativan) 0.5 MG tablet Take 1 tablet (0.5 mg) by mouth if needed each day for anxiety. Prn for panic attacks 30 tablet 0 oxybutynin XL (Ditropan-XL) 5 MG 24 hr tablet TAKE ONE TABLET EVERY MORNING. DO NOT BREAK, CRUSH, DISSOLVE OR CHEW 30 tablet 11 sildenafil (Viagra) 50 MG tablet Take 1 tablet (50 mg) by mouth if needed each day for erectile dysfunction. 10 tablet 3 tamsulosin (Flomax) 0.4 MG 24 hr capsule TAKE TWO CAPSULES EVERY MORNING 180 capsule 3 [DISCONTINUED] sertraline (Zoloft) 50 MG tablet TAKE ONE TABLET EVERY MORNING 30 tablet 3 [DISCONTINUED] verapamil (Calan) 80 MG tablet Take 1 tablet (80 mg) by mouth 3 times daily. 90 tablet 2 No current facility-administered medications on file prior to visit. documented in this encounter Plan of Treatment Upcoming Encounters Date Type Department Care Team (Late st Contact Info) Description 06/03/2025 2:45 PM EST Office Visit [facility] [address] [place] [address] Hari Mitchell MD [address] [place] [address] Scheduled Orders Name Type Priority Associated Diagnoses Orde r Schedule CBC auto differential Lab Routine Essential hypertension Dysuria Expected: 05/02/2025 (Approximate), Expires: 05/02/2026 Comprehensive Metabolic Panel Lab Routine Essential hypertension Dysuria Expected: 05/02/2025 (Approximate), Expires: 05/02/2026 Lipid Panel, Standard Lab Routine Essential hypertension Dysuria Expected: 05/02/2025 (Approximate), Expires: 05/02/2026 TSH with Reflex to Free T4 Lab Routine Essential hypertension Dysuria Expected: 05/02/2025 (Approximate), Expires: 05/02/2026 Hepatitis C Antibody with Reflex to HCV, RNA, Quantitative, Real-Time PCR Lab Routine Essential hypertension Dysuria Expected: 05/02/2025, Expires: 05/02/2026 HIV-1/2 Antigen and Antibodies, Fourth Generation, with Reflexes Lab Routine Essential hypertension Dysuria Expected: 05/02/2025 (Approximate), Expires: 05/02/2026 Scheduled Referrals Name Type Priority Associated Diagnoses Orde r Schedule Referral to Urology Outpatient Referral Routine Nocturia Expected: 05/02/2025 (Approximate), Expires: 05/02/2026 documented as of this encounter Visit Diagnoses Diagnosis Essential hypertension- Primary Unspecified essential hypertension Dysuria Nocturia Moderate major depression, single episode (CMS/HCC) (HCC) Major depressive disorder, single episode, moderate Dietary counseling Dietary surveillance and counseling Exercise counseling Class 1 obesity due to excess calories with serious comorbidity and body mass index (BMI) of 34.0 to 34.9 in adult Encounter for immunization documented in this encounter Additional Health Concerns Assessment Noted Time PHQ-9 Depression Total Score: 0 07/08/20 22 4:17 PM EST documented as of this encounter Care Teams Car Washer Relationship Specialty Start Date End Date Hari Mitchell MD [address] [place] [id number] PCP - General Internal Medicine 08/27/20 documented as of this encounter
--- OUTSIDE RECORDS SUMMARY | 2025-05-06 09:19 | XMS_ITS | Clinical Summary ---
Author Organization [facility] Address [address] [place] [address] Care Team Providers Care Domestic Violence Counselor Name Role Phone Unavailable Primary Care Provider [...] 2021 Zoster Vaccines (1 of 2) 2021 Depression Screening 07/25/2024 COVID-19 Vaccine (1 - 2023-2 5 season) 2025 Influenza Vaccine (#1) 2025 RSV Immunization Adult Patie nts (1 - 1-dose 75+ series) 2046 HIB Vaccines Aged Out No longer eligi [...]
--- OUTSIDE RECORDS SUMMARY | 2025-05-06 09:19 | XMS_ITS | Clinical Summary ---
Author Organization [employer] Address [address] [facility] [address] [place] [address] Care Team Providers Care Lamp Shades Supervisor Name Role Phone Hari Mitchell MD Primary Care Provider [phone]- [phone] Allergies Active Allergy Reactions Criticality Noted Date Comments Lisinopril 04/12/2022 Medications sildenafil (Viagra) 50 MG tabletIndication s:Other male erectile dysfunction Take 1 tablet (50 mg) by mouth if needed each day for erectile dysfunction . 10 tablet 3 02/04/20 23 Active LORazepam (Ativan) 0.5 MG tabletIndication s:Anxiety Take 1 tablet (0.5 mg) by mouth if needed each day for anxiety. Prn for panic attacks 30 tablet 08/04/19 24 Active oxybutynin XL (Ditropan-XL) 5 MG 24 hr tabletIndication s:Dysuria TAKE ONE TABLET EVERY MORNING. DO NOT BREAK, CRUSH, DISSOLVE OR CHEW 30 tablet 11 08/29/19 25 Active carvedilol (Coreg) 3.125 MG tabletIndication s:Primary hypertension TAKE ONE TABLET IN THE MORNING AND EVENING WITH MEALS 90 tablet 3 08/29/19 25 Active tamsulosin (Flomax) 0.4 MG 24 hr capsule TAKE TWO CAPSULES EVERY MORNING 180 capsule 3 02/09/20 25 Active amLODIPine (Norvasc) 10 MG tabletIndication s:Primary hypertension TAKE ONE TABLET EVERY MORNING 90 tablet 3 04/19/20 25 Active tamsulosin (Flomax) 0.4 MG 24 hr capsuleIndicatio ns:Nocturia Take 2 capsules (0.8 mg) by mouth Once per day. 60 capsule 3 05/02/20 25 Active verapamil SR (Calan SR) 240 MG ER tabletIndication s:Essential hypertension Take 1 tablet (240 mg) by mouth at bedtime. Do not crush or chew. 30 tablet 11 05/02/20 25 026 Active sertraline (Zoloft) 50 MG tabletIndication s:Moderate major depression, single episode (CMS/HCC) (HCC) Take 1 tablet (50 mg) by mouth in the morning. 30 tablet 3 05/02/20 25 Active amLODIPine (Norvasc) 10 MG tabletIndication s:Primary hypertension TAKE ONE TABLET EVERY MORNING 90 tablet 3 12/30/19 24 025 Discontinued sertraline (Zoloft) 50 MG tabletIndication s:Moderate major depression, single episode (CMS/HCC) (HCC) TAKE ONE TABLET EVERY MORNING 30 tablet 3 12/11/19 25 025 Discontinued(Re order (will not trigger notification to Pharmacy)) verapamil (Calan) 80 MG tabletIndication s:Primary hypertension Take 1 tablet (80 mg) by mouth 3 times daily. 90 tablet 2 02/29/20 25 025 Discontinued(Th erapy completed) Active Problems Problem Noted Date Diagnosed Date Essential hypertension 06/12/2022 Assessment & Plan (02/28/2025 5:49 PM EDT): Not at target, increase verapamil to 80mg tid, continue low sodium diet and exercise as tolerated, follow up with nurses in 1 month with bp log Hypercholesterolemia 06/12/2022 Moderate major depression, single episode (CMS/H CC) 06/12/2022 Polyp of colon 12/01/2020 Encounters Date Type Department Care Team Description 05/02/2025 4:00 PM EDT Office Visit [facility] [address] [place] [address] Hari Mitchell MD Essential hypertension (Primary Dx); Dysuria; Nocturia; Moderate major depression, single episode (CMS/HCC) (HCC); Dietary counseling; Exercise counseling; Class 1 obesity due to excess calories with serious comorbidity and body mass index (BMI) of 34.0 to 34.9 in adult; Encounter for immunization 05/02/2025 Travel 04/19/2025 Refill [facility] [address] [place] [address] Hari Mitchell MD Primary hypertension 03/01/2025 Telephone [facility] [address] [place] [place] [address] Hari Mitchell MD Appointment Request 02/28/2025 4:00 PM EDT Office Visit [facility] [address] [place] [address] Matt Zavala MD Essential hypertension (Primary Dx); Primary hypertension 02/28/2025 Travel 02/12/2025 Telephone [facility] [address] [place] [place] [address] Hari Mitchell MD ER Follow-up 02/08/2025 Refill [facility] [address] [place] [address] Hari Mitchell MD from Last 3 Months Immunizations Immunization Administration Dates Next Due Tdap 05/02/2025 Social History Tobacco Use Types Packs/Day Years Used Date Smoking Tobacco: Never Smokeless Tobacco: Never Tobacco Cessation:Counseling Given: No Alcohol Use Standard Drinks/Week Comments Defer 0 [...] Orientation Straight 05/24/2022 10 :37 AM EDT Last Filed Vital Signs Vital Sign Reading Time Taken Comments Blood Pressure 159/95 05/02/2025 4:06 PM EDT Pulse 81 05/02/2025 4:06 PM EDT Temperature 36.7 C (98.1 F) 02/28/2025 4:09 PM EDT Respiratory Rate 20 05/02/2025 4:06 PM EDT Oxygen Saturation 94% 05/02/2025 4:06 PM EDT Inhaled Oxygen Concentration - - Weight 107 kg (236 lb) 05/02/2025 4:06 PM EDT Height 182 cm (5' 11.65 ) 05/02/2025 4:06 PM EDT Body Mass Index 32.32 05/02/2025 4:06 PM EDT Plan of Treatment Upcoming Encounters Date Type Department Care Team ([facility] st Contact Info) Description 06/03/2025 2:45 PM EST Office Visit [facility] [address] [place] [address] Hari Mitchell MD [address] [place] [address] Health Maintenance Due Date Last Done Comments CT Colonography 1971 FIT DNA/Cologuard 1971 FIT 1971 FOBT 1971 HIV Screening 1971 SDOH Screening 1971 Sigmoidoscopy 1971 Disability Screening 1971 Alcohol/Substance Use Screening 1983 Hepatitis C Screening 1989 Hepatitis B Vaccines (1 of 3 - 19+ 3-dose series) 1990 Zoster Vaccines (1 of 2) 2021 Depression Screening 07/08/2023 07/08/2022, 07/08/2022 COVID-19 Vaccine (4 - 2024-2 6 season) 2025 10/16/2021, 11/19/2020, 10/21/2020 Lipid Panel 09/19/2025 09/19/2020 Colonoscopy 12/01/2025 12/01/2020 Colorectal Cancer Screening 12/01/2025 Influenza Vaccine (#1) 2026 Postp oned from 03/25/2025 (Patient Refused) Pneumococcal Vaccine: 50+ Years (1 of 1 - PCV) 05/02/2026 Postponed from 03/26 (Patient Refused) Tobacco Screening 05/02/2026 05/02/2025 DTaP/Tdap/Td Vaccines (2 - T d or Tdap) 05/02/2035 05/02/2025 RSV Patients and Patients Aged 60 years or older (1 - 1-dose 75+ series) 2046 HIB [...] patient's age to complete this topic Meningococcal Vaccine Aged Out No salvador gregory eligible based on patient's age to complete this topic RSV under 20 months Aged Out No longe r eligible based on patient's age to complete this topic Rotavirus Vaccines Aged Out No longer eligible based on patient's age to complete this topic Procedures Procedure Name Priority Date/Time Associated Diagnosis Comments COLONOSCOPY Routine 12/01/2020 LIPID PANEL, STANDARD Routine 09/19/2020 8:16 AM EST from Last 3 Months or Most Recently Relevant to Health Maintenance Results * Colonoscopy (12/01/2020) [facility] Colonoscopy Normal Normal So Matthews - 12/01/2020 Recommended 5 year follow up Historical Provider MD HEALTH MAINTENANCE Final Result * (ABNORMAL) LIPID PANEL, STANDARD (09/19/2020 8:16 AM EST) [facility] Chol/HDLC Ratio 4.5 <5.0 (calc) [facility] Cholesterol, Total 249(H) <200 mg/dL [facility] HDL Cholesterol 55 > OR = 40 mg/dL [facility] LDL Cholesterol 167(H) mg/dL (calc) [facility] Comment: Reference range: <100 Desirable range <100 mg/dL for primary prevention; <70 mg/dL for patients with CHD or diabetic patients with > or = 2 CHD risk factors. LDL-C is now calculated using the Annabella calculation, which is a validated novel method providing better accuracy than the Friedewald equation in the estimation of LDL-C. Jamar NEGRETE et al. MARY. 2013;310(19): 4289-1659 (http://education.[employer]/faq/ZME393) Non-HDL Cholesterol 194(H) <130 mg/dL (calc) [facility] Comment: For patients with diabetes plus 1 major ASCVD risk factor, treating to a non-HDL-C goal of <100 mg/dL (LDL-C of <70 mg/dL) is considered a therapeutic option. Triglycerides 135 <150 mg/dL [facility] 09/19/2020 8:16 AM EST Hari Mitchell MD LAB BLOOD ORDERABLES Final Result [facility] [address] from Last 3 Months or Most Recently Relevant to Health Maintenance Insurance [place], [place] [facility] * Guarantor: Niels Mary Account Type Relation to Patient Date of Phone Billing Address Personal/[place] [address] * Guarantor: Niels Mary Account Type Relation to Patient Date of Phone Billing Address Personal/[place] [address] * Guarantor: Niels Mary Account Type Relation to Patient Date of Phone Billing Address Personal/[place] [address] Care Teams Lamp Shades Supervisor Relationship Specialty Start Date End Date Hari Mitchell MD [address] [place] [address] PCP - General Internal Medicine 08/27/20
--- OUTSIDE RECORDS SUMMARY | 2025-05-06 09:19 | XMS_ITS | Encounter Summary ---
Author Organization [employer] Address [address] [place] [address] Care Team Providers Care Insole Tape Stitcher Uco Name Role Phone Hari Mitchell MD Primary Care Provider [phone]- [phone] Encounter Details Date Type Department Care Team (Late Contact Info) Description 05/27/[address] [facility] MEDICINE [address] [place], [place] [phone] Hari Mitchell MD [address] [place], [place] [phone] Social History Tobacco Use Types Packs/Day Years [...] AM EDT documented as of this encounter Plan of Treatment Upcoming Encounters Date Type Department Care Team (Late Contact Info) Description 06/03/2025 2:45 PM EST Office Visit [facility] MED & PEDS [address] [place], [place] [phone] Hari Mitchell MD [address] [place], [place] [phone] documented as of this encounter Procedures Procedure Name Priority Date/Time Associated Diagnosis Comments COLONOSCOPY Routine 12/01/2020 documented in this encounter Results * Hm Colonoscopy (12/01/2020) Colonoscopy Normal Normal Narrative So Coleman - 12/01/2020 Recommended 5 year follow up Historical Provider HEALTH MAINTENANCE Final Result documented in this encounter Visit Diagnoses Not on filedocumented in this encounter Additional Health Concerns Assessment Noted Time PHQ-9 Depression Total Score: 0 07/08/20 22 4:17 PM EST documented as of this encounter Care Teams Insole Tape Stitcher Uco Relationship Specialty Start Date End Date Hari Mitchell MD [address] [place] [address] PCP - General Internal Medicine 08/27/20 documented as of this encounter
--- OUTSIDE RECORDS SUMMARY | 2025-05-06 09:19 | XMS_ITS | Encounter Summary ---
Author Organization [employer] Address [address] [place] [address] Care Team Providers Care Turret Lathe Operator Name Role Phone Hari Mitchell MD Primary Care Provider [phone]- [phone] Reason for Visit * Reason Onset Date Comments Call Back Request 07/11/2023 Encounter Details Date Type Department Care Team ([facility] Contact Info) Description 07/11/2023 Telephone [facility] MED & PEDS [address] [place] [address] Hari Mitchell MD [address] [place] [address] Call Back Request Social History Tobacco Use Types Packs/Day Years [...] encounter Miscellaneous Notes * Telephone Encounter - Emma Sandoval RN - 07/12/2023 11:20 AM EST Triage call Pt reports a blockage 2x int the last 2.5 weeks. Pt reports a dark /brownish liquid was forced out with urination. Pt denies pain, fever, bad odor or burning with urination. Pt does report an enlarged prostate. Pt is taking flomax 0.4 mg 2 capsules daily and asks if this should be increased. Pt reports drinking adequate liquids. Apt with PCP 07/21/23 @ 145pm. Protocol Used: Urinary Symptoms (Adult) Protocol-Based Disposition: See in Office or Video Visit within 2 Weeks Positive Triage Question: * All other urine symptoms * All higher-acuity triage questions were negative Care Advice Discussed: * Reasons To Call Back - Fever occurs - Pain or burning with urination - Unable to urinate and bladder feels full - You become worse * Telephone Encounter - Bhargavi Mustafa - 07/11/2023 4:05 PM EST Tc from pt requesting to speak with PCP in regards to difficulty peeing. No other details provided. Please contact pt at [phone] documented in this encounter Plan of Treatment Upcoming Encounters Date Type Department Care Team (Late st Contact Info) Description 06/03/2025 2:45 PM EST Office Visit [facility] & PEDS [address] [place] [address] Hari Mitchell MD [address] [place] [address] documented as of this encounter Visit Diagnoses Not on filedocumented in this encounter Additional Health Concerns Assessment Noted Time PHQ-9 Depression Total Score: 0 07/08/20 22 4:17 PM EST documented as of this encounter Care Teams Turret Lathe Operator Relationship Specialty Start Date End Date Hari Mitchell MD [address] [place] [address] PCP - General Internal Medicine 08/27/20 documented as of this encounter
--- OUTSIDE RECORDS SUMMARY | 2025-05-06 09:19 | XMS_ITS | Encounter Summary ---
Author Organization [employer] Address [address] [place] [address] Care Team Providers Care Steward/Stewardess Wine Name Role Phone Hari Mitchell MD Primary Care Provider [phone]- [phone] Encounter Details Date Type Department Care Team ([facility] Contact Info) Description 02/03/2023 Orders Only [facility] [address] [place] [address] Hari Mitchell MD [address] [place] [address] Moderate major depression, single episode (CMS/HCC); Primary hypertension; Other male erectile dysfunction; Nocturia Social History Tobacco Use Types Packs/Day Years [...] Upcoming Encounters Date Type Department Care Team ([facility] Contact Info) Description 06/03/2025 2:45 PM EST Office Visit [facility] [address] [place] [address] Hari Mitchell MD [address] [place] [address] documented as of this encounter Visit Diagnoses Diagnosis Moderate major depression, single episode (CMS/HCC) (HCC) Major depressive disorder, single episode, moderate Primary hypertension Unspecified essential hypertension Other male erectile dysfunction Nocturia documented in this encounter Additional Health Concerns Assessment Noted Time PHQ-9 Depression Total Score: 0 07/08/20 22 4:17 PM EST documented as of this encounter Care Teams Steward/Stewardess Wine Relationship Specialty Start Date End Date Hari Mitchell MD [address] [place] [address] PCP - General Internal Medicine 08/27/20 documented as of this encounter
--- OUTSIDE RECORDS SUMMARY | 2025-05-06 09:19 | XMS_ITS | Encounter Summary ---
Author Organization [employer] Address [address] [place] [address] Care Team Providers Care Commercial Collections Specialist Name Role Phone Hari Mtichell MD Primary Care Provider [phone] Reason for Visit * Reason Onset Date Comments Appointment Request 09/23/2022 Encounter Details Date Type Department Care Team ([facility] st Contact Info) Description 09/23/2022 Telephone [facility] MED & PEDS [address] [place] [address] Hari Mitchell MD [address] [place] [address] Appointment Request Social History Tobacco Use Types Packs/Day [...] encounter Miscellaneous Notes * Telephone Encounter - Heather Alcantara RN - 09/27/2022 12:22 PM EST RN spoke with pt who is requesting to reschedule his appt with PCP. Appt requested rescheduled. Pt also requesting all his [facility] RN queued medication but did not queue Sertraline. PCP will need to clarify if pt is taking 1.5 tab /1 tab. Will also forwad message toMarlena to queue Lorazepam to PCP. * Telephone Encounter - Avtar Fairchild - 09/23/2022 4:07 PM EST Tc from pt requesting to r/s appt for 10/04/2022 for ov- HTN/MDD an Office Visit. Pt would also like provider to give a call in regarding medication list to be sent to [facility]. Pt provider facility phone number [phone] If any questions pleas contact pt at [phone] documented in this encounter Plan of Treatment Upcoming Encounters Date Type Department Care Team (Late st Contact Info) Description 06/03/2025 2:45 PM EST Office Visit [facility] PED[facility] [address] [place] [address] Hari Mitchell MD [address] [place] [address] documented as of this encounter Visit Diagnoses Diagnosis Moderate major depression, single episode (CMS/HCC) (HCC)- Primary Major depressive disorder, single episode, moderate Primary hypertension Unspecified essential hypertension Nocturia Anxiety Anxiety state, unspecified documented in this encounter Additional Health Concerns Assessment Noted Time PHQ-9 Depression Total Score: 0 07/08/20 22 4:17 PM EST documented as of this encounter Care Teams Commercial Collections Specialist Relationship Specialty Start Date End Date Hari Mitchell MD [address] [place] [address] PCP - General Internal Medicine 08/27/20 documented as of this encounter
--- OUTSIDE RECORDS SUMMARY | 2025-05-06 09:19 | XMS_ITS | Clinical Summary ---
Author Organization [facility] Address [address] [place] [address] Care Team Providers Care Corn Husk Baler Name Role Phone Unavailable Primary Care Provider [...]
--- OUTSIDE RECORDS SUMMARY | 2025-05-06 09:19 | XMS_ITS | Encounter Summary ---
Author Organization [employer] Address [address] [place] [address] Care Team Providers Care Operations Support Professionals Name Role Phone Hari Mitchell MD Primary Care Provider [phone] Reason for Visit * Reason Onset Date Comments Referral 09/01/2023 Encounter Details Date Type Department Care Team ([facility] st Contact Info) Description 09/01/2023 Telephone [facility] MED & PEDS [address] [place], [place] [phone] Hari Mitchell MD [address] [place] [address] Referral Social History Tobacco Use Types Packs/Day [...] on last visit. Please contact pt @ [phone] documented in this encounter Plan of Treatment Upcoming Encounters Date Type Department Care Team ([facility] st Contact Info) Description 06/03/2025 2:45 PM EST Office Visit [facility] [address] [place] [address] Hari Mitchell MD [address] [place] [address] documented as of this encounter Visit Diagnoses Not on filedocumented in this encounter Additional Health Concerns Assessment Noted Time PHQ-9 Depression Total Score: 0 07/08/20 22 4:17 PM EST documented as of this encounter Care Teams Operations Support Professionals Relationship Specialty Start Date End Date Hari Mitchell MD [address] [place] [address] PCP - General Internal Medicine 08/27/20 documented as of this encounter
--- OUTSIDE RECORDS SUMMARY | 2025-05-06 09:19 | XMS_ITS | Encounter Summary ---
Author Organization [employer] Address [address] [place] [address] Care Team Providers Care Post Acute Care Registered Nurse Name Role Phone Hari Mitchell MD Primary Care Provider [phone] Encounter Details Date Type Department Care Team (Latest Contact Info) Description 05/02/2025 Travel Social History Tobacco Use Types Packs/Day Years [...] Description 06/03/2025 2:45 PM EST Office Visit [facility] PEDS [address] [place] [address] Hari Mitchell MD [address] [place] [address] documented as of this encounter Visit Diagnoses Not on filedocumented in this encounter Additional Health Concerns Assessment Noted Time PHQ-9 Depression Total Score: 0 07/08/20 22 4:17 PM EST documented as of this encounter Care Teams Post Acute Care Registered Nurse Relationship Specialty Start Date End Date Hari Mitchell MD [address] [place] [address] PCP - General Internal Medicine 08/27/20 documented as of this encounter
--- OUTSIDE RECORDS SUMMARY | 2025-05-06 09:19 | XMS_ITS | Encounter Summary ---
Author Organization [employer] Address [address] [place] [address] Care Team Providers Care Photo Lab Manager Name Role Phone Hari Mitchell MD Primary Care Provider [phone] Encounter Details Date Type Department Care Team ([facility] Contact Info) Description 05/10/2023 Orders Only [facility] [address] [place] [address] Hari Mitchell MD [address] [place] [address] Other male erectile dysfunction (Primary Dx) Social History Tobacco Use Types Packs/Day Years [...] Upcoming Encounters Date Type Department Care Team ([facility] Contact Info) Description 06/03/2025 2:45 PM EST Office Visit [facility] [address] [place], [place] [phone] Hari Mitchell MD [address] [place], [place] [phone] Scheduled Orders Name Type Priority Associated Diagnoses Orde r Schedule [facility] And [facility] Lab Routine Other male erectile dysfunction Expected: 05/10/2023 (Approximate), Expires: 05/10/2024 documented as of this encounter Procedures Procedure Name Priority Date/Time Associated Diagnosis Comments TSH W/REFLEX TO FT4 Routine 05/13/2023 3 :13 PM EDT Other male erectile dysfunction TESTOSTERONE, FREE (DIALYSIS) AND TOTAL,MS Routine 05/13/2023 3:13 PM EDT Other male erectile dysfunction documented in this encounter Results * TSH W/Reflex to FT4 (05/13/2023 3:13 PM EDT) TSH reflex Free T4 0.53 0.32 - 4.0 uIU/mL [facility] Blood 05/13/2023 3:13 PM EDT 05/13/2023 5:20 PM EDT us Hari Mitchell MD LAB BLOOD ORDERABLES Final Result [facility] [address] [place] [phone] * Testosterone, Free (Dialysis) And Total, MS (05/13/2023 3:13 PM EDT) Testosterone, Total 452 250 - 1100 ng/dL [facility] Comment:For additional infor mation, please refer tohttp://education.[employer]/faq/[email or web address](This link is being provided for informational/educational purposes only.)This test was developed and its analytical performancecharacteristics have been determined by [employer] [place], [place]. It hasnot been cleared or approved by the U.S. Food and DrugAdministration. This assay has been validated pursuantto the CLIA regulations and is used for clinicalpurposes. Testosterone, Free 53.3 35.0 - 155.0 pg/mL [facility] Comment:This test was develo ped and its analytical performancecharacteristics have been determined by [employer] [place], [place]. It hasnot been cleared or approved by the U.S. Food and DrugAdministration. This assay has been validated pursuantto the CLIA regulations and is used for clinicalpurposes.THIS TEST WAS PERFORMED AT:[facility] [place] [id number] GORMAN MD,PHD Blood Venous blood specimen / Unknown 05/13/2023 3:13 PM EDT 05/13/2023 5:20 PM EDT us Hari Mitchell MD LAB BLOOD ORDERABLES Final Result [facility] [address] [place] [address] [phone] documented in this encounter Visit Diagnoses Diagnosis Other male erectile dysfunction- Primary documented in this encounter Additional Health Concerns Assessment Noted Time PHQ-9 Depression Total Score: 0 07/08/20 22 4:17 PM EST documented as of this encounter Care Teams Photo Lab Manager Relationship Specialty Start Date End Date Hari Mitchell MD [address] [place] [address] PCP - General Internal Medicine 08/27/20 documented as of this encounter
--- OUTSIDE RECORDS SUMMARY | 2025-05-06 09:19 | XMS_ITS | Encounter Summary ---
Author Organization [email or web address] Address [address] [place] [address] Care Team Providers Care Lithoplate Maker Name Role Phone Hari Mitchell MD Primary Care Provider [phone] [phone] Encounter Details Date Type Department Care Team (Late Contact Info) Description 02/28/2023 Orders Only [facility] MED & PEDS [address] [place] [address] Hari Mitchell MD [address] [place] [address] Social History Tobacco Use Types Packs/Day Years [...] Description 06/03/2025 2:45 PM EST Office Visit [facility] MED & PEDS [address] [place] [address] Hari Mitchell MD [address] [place] [address] documented as of this encounter Visit Diagnoses Not on filedocumented in this encounter Additional Health Concerns Assessment Noted Time PHQ-9 Depression Total Score: 0 07/08/20 22 4:17 PM EST documented as of this encounter Care Teams Lithoplate Maker Relationship Specialty Start Date End Date Hari Mitchell MD [address] [place] [address] PCP - General Internal Medicine 08/27/20 documented as of this encounter
[2025-05-06 14:18] LABS: MANUAL DIFF FLAG NO
[2025-05-06 14:20] LABS: Hematocrit 48.1 % (42.0-52.0); Hemoglobin 16.5 g/dl (14.0-18.0); Imm Gran Abs Auto 0.02 X10*3/uL (0.00-0.03); Imm Gran Pct Auto 0.3 % (0.0-0.4); Lymphocytes Absolute Auto 1.3 X10*3/uL (1.2-4.9); Mean Corpuscular HGB Conc 34.3 g/dl (31.0-36.0); Mean Corpuscular Hemoglobin 31.6 pg (27.0-33.0); Mean Corpuscular Volume 92.1 fL (80.0-98.0); NRBC Abs Auto 0.000 X10*3/uL (0.0-0.012); NRBC Pct Auto 0.0 /100WBC (0.0-0.2); Platelet Count 243 X10*3/uL (160-400); Red Blood Count 5.22 X10*6/uL (4.60-5.80); White Blood Count 6.3 X10*3/uL (4.8-10.8)
[2025-05-06 14:54] LABS: Alanine Aminotransferase 27 U/L (0-40); Albumin Level 4.9 g/dL (3.5-5.0); Alkaline Phosphatase 141 U/L (39-117); Anion Gap 13 (12-20); Aspartate Amino Transferase 30 U/L (5-37); Blood Urea Nitrogen 7 mg/dL (9-16); Calcium 9.2 mg/dL (8.4-10.2); Carbon Dioxide 23 mmol/L (22-29); Chloride 109 mmol/L (96-108); Cholesterol 267 mg/dL (<200); Estimated Glomerular Filt Rate > 60; HDL Cholesterol 67 mg/dL (>40); Potassium 4.2 mmol/L (3.3-5.1); Sodium 141 mmol/L (135-145); Total Protein 7.6 g/dL (6.5-8.0); Triglycerides 178 mg/dL (<150)
[2025-05-07 04:28] LABS: HIV Num 1 0.07 S/CO (0.00-0.99); ~HepC Num1 0.11 S/CO (0.00-0.79); ~Hepatitis C Antibody Nonreactive (Nonreactive)
== END 2025-05-06 09:17 | disposition home or self-care (01) ==
LOC: HO.CHCLDS 09:16
PROVIDERS: Visit Provider Internal Medicine
DX: Z11.59 Encounter for screening for other viral diseases (principal); Z11.4 Encounter for screening for human immunodeficiency virus [HIV]; I10 Essential (primary) hypertension; R30.0 Dysuria
CPT/HCPCS: 36415; 80053; 80061; 84443; 85025; 86803; 87389